=== PATIENT | male | born 1985 | race Caucasian/White ===

== ENCOUNTER 2019-01-05 09:22 | Emergency (ER) | payer MEDICAID ==
[~2019-01-05] VITALS: Ht 182.9 cm; Wt 71.7 kg
[2019-01-05 09:37] VITALS: BP 120/70
== END 2019-01-05 10:08 | disposition home or self-care (01) ==
LOC: ER 09:22
DX: S61.412D Laceration without foreign body of left hand, subsequent encounter (principal); X58.XXXD Exposure to other specified factors, subsequent encounter

== ENCOUNTER 2019-02-18 10:47 | Emergency (ER) | payer MEDICAID ==
[~2019-02-18] VITALS: Ht 182.9 cm; Wt 74.8 kg
--- NOTE | 2019-02-18 11:08 | NUR ---
CAME IN FOR ABDOMINAL PAIN AND BLOODY STOOL FOR 2/3 DAYS.TO ER BED 9, HOOKED TO MONITOR, CHANGED TO HOSP [facility], PROVIDED WARM BLANKET, AWAITING MD [place].
--- NOTE | 2019-02-18 11:18 | NUR ---
DR HER AT BEDSIDE
[2019-02-18] MEDS ORDERED: ONDANSETRON HCL/PF 4 MG/2 ML VIAL IVP ONE (11:30)
[2019-02-18] MEDS ORDERED: MORPHINE SULFATE INJ 2 MG/ML DISP.SYRIN IV ONE (11:30)
[2019-02-18] MEDS ORDERED: IV NS 0.9% 500 ML BAG IV ONE (11:30)
[2019-02-18 11:37] LABS: BASOPHILS % (AUTO) 0.4 % (0.0-2.0); EOSINOPHILS % (AUTO) 0.4 % (0.0-6.0); HEMATOCRIT 50 % (39-51); HEMOGLOBIN 16.6 g/dL (13.5-17.5); LYMPHOCYTES # (AUTO) 1.3 /CMM (0.8-4.8); LYMPHOCYTES % (AUTO) 13.3 % (20.0-44.0); MEAN CORPUSCULAR HGB CONC 33 g/dl (31.0-36.0); MEAN CORPUSCULAR VOLUME 93 fL (80-96); MONOCYTES # (AUTO) 0.8 /CMM (0.1-1.30); MONOCYTES % (AUTO) 8.3 % (2.0-12.0); NEUTROPHILS # (AUTO) 7.6 /CMM (1.8-8.9); NEUTROPHILS % (AUTO) 77.6 % (43.0-81.0); PLATELET COUNT (AUTO) 259 /CMM (150-450); RED BLOOD CELL COUNT(AUTO) 5.34 MIL/uL (4.5-6.0); WHITE BLOOD COUNT (AUTO) 9.8 K/uL (4.3-11.0)
[2019-02-18 11:44] LABS: CALCIUM, SERUM 9.2 mg/dL (8.5-10.1); CREATININE 0.9 mg/dL (0.6-1.3); POTASSIUM 4.1 mmol/L (3.5-5.1)
[2019-02-18 11:50] LABS: BILIRUBIN,DIRECT 0.1 mg/dL (0.0-0.2); BILIRUBIN,TOTAL 0.4 mg/dL (0.2-1.0); TOTAL PROTEIN, SERUM 8.2 g/dL (6.4-8.2)
[2019-02-18] MEDS ORDERED: LEVOFLOXACIN 500 MG /D5W 100ML 500 MG in PREMIX 1 EA IV SCH (12:00)
[2019-02-18] MEDS ORDERED: ONDANSETRON HCL/PF 4 MG/2 ML VIAL ONE (12:03)
[2019-02-18] MEDS ORDERED: LEVOFLOXACIN 500 MG /D5W 100ML 100 ML IV ONE (12:03)
[2019-02-18] MEDS ORDERED: MORPHINE SULFATE INJ 4 MG/ML DISP.SYRIN ONE (12:03)
--- NOTE | 2019-02-18 12:17 | NUR ---
PATIENT STATES HE LIVES IN [facility] AND VISITING HIS MOTHER THAT LIVES IN [facility]
--- NOTE | 2019-02-18 12:51 | NUR ---
IV removed. Catheter intact and site benign. Pressure and 4x4 applied to site. No bleeding noted.Patient discharged to home in stable condition. Written and verbal after care instructions given. Patient verbalizes understanding of instruction.
[2019-02-18 12:52] VITALS: BP 148/76
== END 2019-02-18 12:52 | disposition home or self-care (01) ==
LOC: ER 10:48
DX: A49.8 Other bacterial infections of unspecified site (principal)
CPT/HCPCS: 36415; 80048; 80076; 83690; 85025; 96365; 96375; 99283; J1956; J2270; J2405; J7040; A4216

== ENCOUNTER 2019-08-22 23:04 | Emergency (ER) | payer MEDICAID ==
[~2019-08-22] VITALS: Ht 182.9 cm; Wt 72.6 kg
[2019-08-22] MEDS ORDERED: TRAMADOL HCL 50 MG TABLET ONE (23:42)
--- NOTE | 2019-08-22 23:49 | NUR ---
Patient discharged to home in stable condition. Written and verbal after care instructions given. Patient verbalizes understanding of instruction.
[2019-08-22 23:50] VITALS: BP 122/76
--- NOTE | 2019-08-22 23:50 | NUR ---
PATIENT STATES THAT HE WILL TAKE [facility] HOME.
[2019-08-23] MEDS ORDERED: TRAMADOL HCL 50 MG TABLET PO ONE
== END 2019-08-22 23:51 | disposition home or self-care (01) ==
LOC: ER 23:06
DX: S60.456A Superficial foreign body of right little finger, initial encounter (principal); Z90.89 Acquired absence of other organs; Z60.2 Problems related to living alone; W45.8XXA Other foreign body or object entering through skin, initial encounter; Y93.89 Activity, other specified; Y92.89 Other specified places as the place of occurrence of the external cause; Y99.8 Other external cause status